=== PATIENT | female | born 1990 | race Hispanic/Latino ===

== ENCOUNTER 2018-04-26 08:52 | Emergency (ER) | payer OTHER | END 2018-04-26 09:20 | disposition home or self-care (01) | LOC: M ED 08:52 | DX: S43.402A Unspecified sprain of left shoulder joint, initial encounter (principal); Y93.B3 Activity, free weights; Y92.39 Other specified sports and athletic area as the place of occurrence of the external cause | CPT/HCPCS: 99282 ==